=== PATIENT | male | born 1995 | race Caucasian/White ===

== ENCOUNTER 2020-01-06 02:29 | Emergency (ER) | payer SELFPAY ==
[2020-01-06] MEDS ORDERED: Amoxicillin/Potassium Clav 875 MG TAB ONE (02:43)
== END 2020-01-06 02:50 | disposition home or self-care (01) ==
LOC: MADERS 02:29
DX: H66.41 Suppurative otitis media, unspecified, right ear (principal); H72.91 Unspecified perforation of tympanic membrane, right ear; F17.210 Nicotine dependence, cigarettes, uncomplicated
CPT/HCPCS: 99282

== ENCOUNTER 2020-01-26 18:35 | Emergency (ER) | payer SELFPAY ==
[2020-01-26] MEDS ORDERED: Ondansetron ODT 4 MG TAB ONE (18:57)
[2020-01-26] MEDS ORDERED: Loperamide HCl 2 MG CAP ONE (18:57)
== END 2020-01-26 19:43 | disposition home or self-care (01) ==
LOC: MADERS 18:35
DX: R11.2 Nausea with vomiting, unspecified (principal); R19.7 Diarrhea, unspecified; F17.210 Nicotine dependence, cigarettes, uncomplicated
CPT/HCPCS: 99283; Q0162